=== PATIENT | female | born 1965 | race Caucasian/White ===

== ENCOUNTER 2017-11-07 14:50 | Outpatient (CLI) | payer BC | END 2017-11-07 14:51 | disposition home or self-care (01) | LOC: BICMAMMO 14:50 | PROVIDERS: ATTEND Nurse Practitioner Family | DX: Z12.31 Encounter for screening mammogram for malignant neoplasm of breast (principal) | CPT/HCPCS: 77063; 77067 ==

== ENCOUNTER 2018-06-28 20:22 | Emergency (ER) | payer BC ==
[2018-06-28] MEDS ORDERED: Ondansetron ODT 4 MG TAB ONE (20:38)
[2018-06-28 21:01] LABS: #Basophils 0.2 thou/uL (0.0-0.2); #Eosinphils 0.3 thou/uL (0.0-0.7); #Lymphocytes 4.6 thou/uL (1.20-3.40); #Monocytes 0.8 thou/uL (0.11-0.59); #Neutrophils 7.7 thou/uL (1.40-6.50); %Basophils 1.1 % (0.0-1.0); %Lymphocytes 34.1 % (21.0-51.0); %Monocytes 5.9 % (0.0-10.0); %Neutrophils 56.9 % (42.0-75.0); Hemoglobin 14.6 g/dL (12.0-16.0); Mean Corpuscular HGB CONC 34.8 g/dL (32.0-36.0); Mean Corpuscular Hemoglobin 29.7 pg (27.0-31.0); Mean Corpuscular Volume 85.2 fL (78.0-98.0); Platelet Count 295 thou/uL (130-400); RBC Distribution Width 12.5 % (11.5-14.5); Red Blood Cell (RBC) Count 4.91 mill/uL (4.20-5.40); White Blood Cell (WBC) Count 13.5 thou/uL (4.8-10.8)
[2018-06-28 21:35] LABS: ALT (SGPT) 11 U/L (8-55); AST (SGOT) 13 U/L (5-34); Albumin 4.3 g/dL (3.5-5.0); Alkaline Phosphatase 84 U/L (40-150); Anion Gap 14 mmol/L (10-20); BUN (Urea Nitrogen) 14 mg/dL (9.8-20.1); Bilirubin, Total 0.3 mg/dL (0.2-1.2); Calc. Creatinine Clearance 0 mL/min (70-130); Carbon Dioxide 29 mmol/L (22-29); Chloride 99 mmol/L (98-107); Estimated GFR-MDRD 79; Globulin 4.1 g/dL (2.4-3.5); Glucose 101 mg/dL (70-105); Lipase 19 U/L (8-78); Potassium 3.4 mmol/L (3.5-5.1); Protein, Total 8.4 g/dL (6.0-8.3); Sodium 139 mmol/L (136-145)
== END 2018-06-28 22:34 | disposition left against medical advice (07) ==
LOC: ERS 20:22
DX: Z53.21 Procedure and treatment not carried out due to patient leaving prior to being seen by health care provider (principal)
CPT/HCPCS: 36415; 80053; 83690; 85025; Q0162

== ENCOUNTER 2018-08-16 01:26 | Outpatient (CLI) | payer BC ==
[2018-08-16 12:30] LABS: Hemoglobin 13.1 g/dL (12.0-16.0); Mean Corpuscular HGB CONC 33.4 g/dL (32.0-36.0); Mean Corpuscular Hemoglobin 28.6 pg (27.0-31.0); Mean Corpuscular Volume 85.7 fL (78.0-98.0); Mean Platelet Volume 7.5 fL (7.4-10.4); Platelet Count 267 thou/uL (130-400); RBC Distribution Width 12.8 % (11.5-14.5); Red Blood Cell (RBC) Count 4.59 mill/uL (4.20-5.40); White Blood Cell (WBC) Count 8.3 thou/uL (4.8-10.8)
[2018-08-16 12:40] LABS: BHCG - Serum Negative (NEGATIVE); Pregs Control Background? CLEAR/WHITE (CLR/WHITE); Pregs Control Bar Appear? YES (CONTROL BAR)
== END 2018-08-16 01:27 | disposition home or self-care (01) ==
LOC: LABBT 01:26
PROVIDERS: ATTEND Obstetrics & Gynecology
DX: Z01.812 Encounter for preprocedural laboratory examination (principal); N92.0 Excessive and frequent menstruation with regular cycle; D25.1 Intramural leiomyoma of uterus
CPT/HCPCS: 84703; 85027; 86850; 86900; 86901

== ENCOUNTER 2018-08-16 11:15 | Inpatient (IN) | payer BC ==
[2018-08-16 11:17] VITALS: BMI 37.2
[2018-08-20] MEDS ORDERED: Gabapentin 300 MG CAP ONE (06:16)
[2018-08-20] MEDS ORDERED: Famotidine/PF 20 mg/2ml Vial ONE (06:17)
[2018-08-20] MEDS ORDERED: CeleCOXIB 100 MG CAP ONE (06:17)
[2018-08-20] MEDS ORDERED: Fentanyl 100 MCG/2 ML VIAL ONE (06:42)
[2018-08-20] MEDS ORDERED: Bupivacaine HCl 0.5%/Epinephrine 1:200,000/PF 30 ml Vial ONE (06:43)
--- NOTE | 2018-08-20 07:06 | HP ---
She is scheduled for surgery on 08/20/2018. HISTORY OF PRESENT ILLNESS: Ms. Ashley is a 53-year-old female G3, P3, prior tubal ligation, who has been having increasingly worsening menstrual cramping. She is also having pelvic pressure and discomfort sensation, which is basically worsened over the past year or 2. The pain became severe enough recently, where she presented to the emergency room. A CAT scan and pelvic ultrasound on June 29 revealed a 15.4 x 7 x 10 cm uterus and a 3 cm left ovarian cyst, simple in character. She was given [place] for pain and has been using that frequently. Her last Pap smear was reported normal in 2014. She has never been told in the past that she has had uterine fibroids, but there were multiple uterine fibroids seen on the recent CT scan and pelvic ultrasound. PAST MEDICAL AND SURGICAL HISTORY: Significant for laparoscopic cholecystectomy and tubal ligation. Chronic hypertension. FAMILY HISTORY: Noted for diabetes in her mother and grandmother and maternal grandfather with colon cancer. 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 Thrasher, who initially evaluated the patient and he was unable to pass it through the cervical stenosis. Recent Pap smear obtained in June 2018 was normal along with negative HPV screening. ALLERGIES: SHE HAS NO KNOWN DRUG ALLERGIES. MEDICATIONS: Atenolol 50 mg tablet daily. SOCIAL HISTORY: Nonsmoker. No excessive alcohol use. PHYSICAL EXAMINATION: VITAL SIGNS: The patient's height is 4 feet 10 inches, weight 169 pounds with a BMI of 35.3. Blood pressure 120/72, pulse 81 and regular, and respiratory rate 18. HEENT: Within normal limits. CHEST: Clear to auscultation. HEART: Regular rate and rhythm. S1 and S2 heart sounds. No murmurs, rubs, or gallops. ABDOMEN: Soft, nontender, and nondistended. uterus above over the pelvic brim. PELVIC: On pelvic exam, vulva and vagina had no lesions. Cervix has no lesions. Uterus was approximately 16-week size, irregular, and consistent with uterine fibroids. Adnexa were nontender with no masses. ASSESSMENT: This is a 53-year-old female G3, P3 with tubal ligation, now with symptomatic uterine fibroids including dysmenorrhea and pelvic pain. CAT scan and pelvic ultrasound, agree with the findings. PLAN: Plan is to proceed with a robotic total laparoscopic hysterectomy and bilateral salpingo-oophorectomy with removal of the uterus in contained manner with an ExCITE procedure. The patient is aware if we were unable to accomplish this laparoscopically, then we would proceed with a VIDAL-BSO. Risks and benefits have been discussed, this is set for 08/20/2018. Job ID: [id number]
[2018-08-20] MEDS ORDERED: Simethicone Chewable 80 MG TAB PO PRN (10:19)
[2018-08-20] MEDS ORDERED: traMADol HCl 50 MG TAB PO PRN ×2 (10:19)
[2018-08-20] MEDS ORDERED: Morphine 4 MG/ML VIAL SLOW IVP PRN (10:19)
[2018-08-20] MEDS ORDERED: Acetaminophen 1,000 MG in Premix Bag 1 BAG IVPB PRN (10:19)
[2018-08-20] MEDS ORDERED: diphenhydrAMINE 25 MG CAP PO PRN (10:19)
[2018-08-20] MEDS ORDERED: Bisacodyl 10 MG SUPP PR PRN (10:19)
[2018-08-20] MEDS ORDERED: Zolpidem Tartrate 5 MG TAB PO PRN (10:19)
[2018-08-20] MEDS ORDERED: Ondansetron PF 4 MG/2 ML Vial IVP PRN (10:19)
[2018-08-20] MEDS ORDERED: Promethazine HCl 25 MG/ML VIAL IM PRN (10:19)
[2018-08-20] MEDS ORDERED: Estradiol 0.05mg/24 Hour Patch (Weekly) TD SCH (10:30)
[2018-08-20] MEDS ORDERED: Ketorolac Tromethamine 30 MG/ML VIAL IVP SCH (12:00)
--- NOTE | 2018-08-20 12:22 | OP ---
DATE OF PROCEDURE: 08/20/2018 PREOPERATIVE DIAGNOSES: 1. A 53-year-old female G3, P3, prior tubal ligation with symptomatic 16 week uterine fibroids. 2. Menorrhagia. 3. Pelvic pain. POSTOPERATIVE DIAGNOSES: 1. A 53-year-old female G3, P3, prior tubal ligation with symptomatic 16 week uterine fibroids. 2. Menorrhagia. 3. Pelvic pain. PROCEDURES PERFORMED: Robotic total laparoscopic hysterectomy, bilateral salpingo oophorectomy with the extracorporeal C-incision tissue extraction procedure for removal of the uterine specimen. RECORDER HELPER GRAVITY PROSPECTING SURGEONS: 1. Nicole Ellis DO. 2. Angella Kay PA-C. ANESTHESIA: General endotracheal. ESTIMATED BLOOD LOSS: 50 mL. COMPLICATIONS: None. COUNTS: Correct x2. PATHOLOGY: Bilateral fallopian tubes, ovaries, uterus, and cervix. FINDINGS: 1. Normal bilateral fallopian tubes and ovaries with some filmy adhesions noted bilaterally. 2. Bulky 16-week size uterus with intramural subserosal fibroids noted. 3. Clear urine present in Woods catheter postprocedure and bilateral ureteral peristalsis visualized postprocedure. DISPOSITION: Recovery room, stable. DESCRIPTION OF OPERATIVE PROCEDURE: The patient previously received informed consent in regard to surgery. She was taken back to the operating room, where she received general endotracheal anesthetic agent without complications. She was placed in the dorsal lithotomy position with the use of Luis Antonio stirrups and prepped and draped in usual sterile fashion. At this time, a Woods catheter was placed and the speculum was placed in the vagina. The uterus sounded to 9 cm and size 8 cm CLEMENTINA uterine manipulator 4.0 cm cup was placed in usual fashion. Tenaculum and speculum were removed. Attention was then turned to the abdomen, where perspective trocar sites were infiltrated 0.5% Marcaine with epinephrine. A 12 mm supraumbilical incision was made. Veress needle was then entered into the peritoneal cavity, the patient's pressure was noted to be less than 5 mm. Abdomen was insufflated with the patient's pressure of 15 approximately 5 L of carbon dioxide gas. The Veress needle was then removed. A size 12 mm trocar was then placed through the supraumbilical incision and then the laparoscope was introduced through the trocar sleeve confirming proper entry. The patient was placed in Trendelenburg position. At this time, bilateral lower quadrant 8 mm robotic trocars were placed under laparoscopic guidance along with the right upper quadrant 11 mm clothing sales assistant port. The decision to proceed with robotic hysterectomy was made and then a GelPOINT trocar device was placed in the umbilical incision, which allowed for us to remove the uterus further long in the case. The fascial incision was extended to 2.5 cm in the supraumbilical area on the GelPOINT ring and Marcell retractor was placed. The GelPOINT was then attached along with the trocars. Trocar placed through it and the robotic laparoscope was introduced and through the trocar sleeve. The robot was then docked in usual fashion. Prior to this, though the Aces large bag had been placed and then fold in accordion position and tied with sutures and this had been placed in the right upper quadrant of the patient's abdomen through the fascial defect at the umbilicus. Then, the GelPOINT was attached. The robot had been docked and I proceeded to carry out the procedure from the operative console while my assistants remained at the bedside. The uterus was elevated from the pelvis. The left IP ligament was identified. The course of the ureters noted to be below this site. The IP ligament was coagulated and transected with bipolar fenestrated cautery and monopolar scissors. Serial coagulation of the broad ligament hugging close to the uterine specimen was carried out to the left round ligament was reached. It was transected after coagulation and the anterior leaf of the broad ligament was entered by dissecting the vesicouterine peritoneum in a layering fashion. The posterior leaf of the broad ligament continued to be dissected in avascular plane on the lateral aspect of the left side of the uterus, getting the ureter and the vessels away to the pelvic sidewall. This was carried down, passed the internal cervical os region. The uterine vessels were then coagulated in the internal cervical os with the bipolar fenestrated cautery. Then, the right infundibulopelvic pelvic ligament was identified. The course of the ureter was noted to be below, where the coagulation point was going to be performed. The IP ligament was coagulated with bipolar fenestrated cautery and transected with monopolar scissors. Again, coagulation of the broad ligament hugging close to uterine specimen was carried out. Coagulation transection to the right round ligament was reached. Again, the anterior leaf of the broad ligament was entered. The vesicouterine peritoneum layer was incised both sharply and bluntly dissecting the bladder off the cervix, passed the cervical vaginal cuff, which was delineated by the manipulator. Again, the vessels of the uterus were skeletonized and coagulated in the internal cervical os region. There was noted to be some bleeding on the serosal edge of the bladder during the dissection off the cervix and the monopolar scissors was exchanged at this time for a Reji needle front end driver. My clothing sales assistant brought in a 2-0 Vicryl suture to the left upper quadrant clothing sales assistant port and the serosa was closed over the bladder in a running continuous horizontal fashion with approximately 4 stitches being thrown with good hemostasis noted. The bladder was distended again intraoperatively and it was noted to be prior to this watertight and again watertight. After the uterine vessels had been further coagulated and skeletonized, the anterior colpotomy was then created starting at the 12 to 3 and 12 to 9 o'clock position. We then flipped the large uterine specimen forward and the posterior colpotomy was completed from 6 to 3 and 6 to 9 o'clock position. The uterus and cervix was detached. It was brought up to the left mid quadrant as the remaining uterine manipulator was removed from the vagina and the balloon was then placed back in the vagina for pneumoperitoneum. My clothing sales assistant then brought in a Stratafix suture and then the vaginal cuff was closed in 2 layer closure starting from the right angle towards the left angle back towards the right angle with good hemostasis of the vaginal cuff confirmed. The pelvis again now was then irrigated and suctioned. All pedicle sites were confirmed to be hemostatic and bilateral ureteral peristalsis was visualized bilaterally. Clear urine was draining from the Woods catheter. The Aces bag was then brought into the pelvis with the use of the Reji needle front end driver and bipolar fenestrated device. Once the bag was placed adequately, my clothing sales assistant then cut the stay sutures x2, opening up the Aces bag. We then were able to maneuver the uterine specimen and the bilateral fallopian tubes and ovaries into the bag. We then found the previous tight loop on the side of the bag, which enabled us to bring the drawstring of the bag through the loop, closing the bag with the specimen in-situ. My clothing sales assistant then brought in an atraumatic grasper through the GelPOINT and grasped the bag of the Aces tissue containment bag. After this had been accomplished and the bag have been brought up towards the umbilicus, I broke from the operative console and then rescrubbed as the robot was undocked. We then brought the Aces bag and its contents up through the umbilical defect. The Marcell O retractor had been removed, then placed inside the Aces bag with retraction of the fascia again to protect the tissue bag containment. The ExCITE procedure with the C technique of the morcellation was carried out with a #11 blade with serial removal of the specimen, so the entire specimen was removed from the containment bag. The Marcell O retractor was removed along with the Aces bag was noted to be intact and watertight. The fascia over the umbilicus was then closed with a running continuous 0 Vicryl suture. Good fascial approximation. The closure of the trocar sites and the remainder of the skin incisions were closed with 4-0 Monocryl with Dermabond. The vagina was inspected with this sponge stick and hemostasis of the vaginal cuff vaginally was confirmed. The patient was then awakened from anesthesia and transferred to recovery room in stable condition. Job ID: [id number]
[2018-08-20] MEDS: Sodium Chloride 0.9% 1,000 ML IV SCH ×2 (13:30→18:30)
[2018-08-20] MEDS ORDERED: Rocuronium Bromide 10 MG/ML (10ML VIAL) ONE (15:19)
[2018-08-20] MEDS ORDERED: Dexamethasone 20 MG/5 ML VIAL ONE (15:19)
[2018-08-20] MEDS ORDERED: Lidocaine 1% PF 5 ML VIAL ONE (15:19)
[2018-08-20] MEDS ORDERED: PROPOFOL 200 MG/20 ML VIAL ONE (15:19)
[2018-08-20] MEDS ORDERED: Ketorolac Tromethamine 30 MG/ML VIAL ONE (15:19)
[2018-08-20] MEDS ORDERED: Ondansetron PF 4 MG/2 ML Vial ONE (15:19)
[2018-08-20] MEDS ORDERED: Glycopyrrolate 0.2 MG/ML 5 ML SYRINGE ONE (15:19)
[2018-08-20] MEDS ORDERED: PHENYLEPHRINE-NS 100 MCG/ML 10 ML SYRINGE ONE (15:19)
[2018-08-20] MEDS: Ketorolac Tromethamine 30 MG/ML VIAL IVP SCH ×2 (15:29→22:30)
[2018-08-21] MEDS: Sodium Chloride 0.9% 1,000 ML IV SCH (02:30)
[2018-08-21] MEDS: Ketorolac Tromethamine 30 MG/ML VIAL IVP SCH ×2 (04:52→09:35)
[2018-08-21 07:33] LABS: Hemoglobin 11.8 g/dL (12.0-16.0); Mean Corpuscular HGB CONC 33.4 g/dL (32.0-36.0); Mean Platelet Volume 7.5 fL (7.4-10.4); Platelet Count 205 thou/uL (130-400); RBC Distribution Width 13.2 % (11.5-14.5); Red Blood Cell (RBC) Count 4.05 mill/uL (4.20-5.40); White Blood Cell (WBC) Count 14.4 thou/uL (4.8-10.8)
[2018-08-21 08:04] VITALS: TEMP 98.2
--- NOTE | 2018-08-21 09:55 | PDOC.EVN ---
Event Note - Event Note Event Note: Tolerating regular diet. Passing gas. Good pain control. Ambulating and voiding. O:AFVSS. Hct 35.2% abdomen soft/ non distended. trochar sites c/d/i. A/P: post op kaila 1 from robotic tlh/bso.. doing well.. d/c home. follow up 2 and 6 weeks.
--- NOTE | 2018-08-21 11:26 | DIS ---
DATE OF ADMISSION: 08/20/2018 DATE OF DISCHARGE: 08/21/2018 DATE OF SURGERY: 08/20. DIAGNOSES: 1. Asymptomatic 16-week uterine fibroid. 2. Pelvic pain. 3. Menorrhagia. PROCEDURES PERFORMED: Robotic total laparoscopic hysterectomy and bilateral salpingo-oophorectomy with ExCITE procedure for specimen removal. SUMMARY HOSPITAL COURSE: Ms. Ashley is a 53-year-old female, who has been having progressive pelvic pain issues and heavy flow and was noted to have a 16-week uterine fibroid. She underwent a robotic total laparoscopic hysterectomy and bilateral salpingo-oophorectomy with ExCITE procedure on 08/20/2018. Postoperatively, the patient has done well. Her vital signs remained stable. She was ambulating and voiding without difficulty and tolerating a regular diet on postop day #1. DISCHARGE MEDICATIONS: [place] 325-5 mg one p.o. q.6 hours p.r.n. pain, [id number]-[id number] ibuprofen as directed and estradiol 0.05 patch apply twice a week for hormone replacement therapy. Pathology is pending at time of this dictation, and she has a followup scheduled two in 6 weeks. Job ID: [id number]
[2018-08-21 11:42] VITALS: BP 128/68
[2018-08-25] MEDS ORDERED: Ibuprofen 800 MG TAB PO SCH (14:00)
== END 2018-08-21 11:57 | disposition home or self-care (01) | DRG 743 ==
LOC: SURG A 08-20 05:33 → SJJU 08-20 11:22 → SURG A 08-20 11:24 → 3SE 08-20 12:28
PROVIDERS: ADMIT Obstetrics & Gynecology; ATTEND Obstetrics & Gynecology
PROC: 0UT94ZZ Resection of Uterus, Percutaneous Endoscopic Approach (ICD-10-PCS; principal; 2018-08-20)
PROC: 0UT24ZZ Resection of Bilateral Ovaries, Percutaneous Endoscopic Approach (ICD-10-PCS; 2018-08-20)
PROC: 0UT74ZZ Resection of Bilateral Fallopian Tubes, Percutaneous Endoscopic Approach (ICD-10-PCS; 2018-08-20)
PROC: 8E0W4CZ Robotic Assisted Procedure of Trunk Region, Percutaneous Endoscopic Approach (ICD-10-PCS; 2018-08-20)
DX: D25.1 Intramural leiomyoma of uterus (principal); N92.0 Excessive and frequent menstruation with regular cycle; R10.2 Pelvic and perineal pain; I10 Essential (primary) hypertension; Z90.49 Acquired absence of other specified parts of digestive tract; Z98.51 Tubal ligation status
CPT/HCPCS: 36415; 85027; 88307; J0131; J0670; J1100; J1885; J2001; J2270; J2405; J2704; J3010; S0028

== ENCOUNTER 2018-12-24 13:09 | Outpatient (CLI) | payer BC ==
--- NOTE | 2018-12-24 13:53 | BD ---
DEXA BONE DENSITY STUDY: Date: 12/24/18 HISTORY: Vitamin D deficiency. FINDINGS: Lumbar Spine: BMD (g/cm2) L1 1.070 T-Score: +0.7 L2 1.167 T-Score: +1.3 L3 1.195 T-Score: +1.0 L4 1.204 T-Score: +1.3 Total 1.161 T-Score: +1.0 Left Femoral Neck: 0.946 T-Score: +0.9 Total Femur: 1.189 T-Score: +2.0 IMPRESSION: Normal bone mineral density of the lumbar spine and left femoral neck. POS: [facility]
--- NOTE | 2018-12-24 14:39 | MMO ---
Bilateral MAMMO Bilat Screen [facility]+BOUBACAR. CLINICAL HISTORY: Patient is 53 years old and is seen for screening. The patient has no family history of breast cancer. The patient has no personal history of cancer. The patient has a history of right Ultrasound Guided Core Biopsy more than 10 years ago - benign. VIEWS: The views performed were: bilateral craniocaudal with tomosynthesis and bilateral mediolateral oblique with tomosynthesis. FILMS COMPARED: The present examination has been compared to a prior imaging study performed at [facility] on 11/07/2017. MAMMOGRAM FINDINGS: There are scattered fibroglandular densities. Right biopsy clip. There are no suspicious masses, suspicious calcifications, or new areas of architectural distortion. IMPRESSION: THERE IS NO MAMMOGRAPHIC EVIDENCE OF MALIGNANCY. A ROUTINE FOLLOW-UP MAMMOGRAM IN 1 YEAR IS RECOMMENDED. THE RESULTS OF THIS EXAM WERE SENT TO THE PATIENT. ACR BI-RADS Category 2 - Benign finding MAMMOGRAPHY NOTE: 1. A negative mammogram report should not delay a biopsy if a dominant of clinically suspicious mass is present. 2. Approximately 10% to 15% of breast cancers are not detected by mammography. 3. Adenosis and dense breasts may obscure an underlying neoplasm.
== END 2018-12-24 13:10 | disposition home or self-care (01) ==
LOC: BICMAMMO 13:09
PROVIDERS: ATTEND Nurse Practitioner Family
DX: Z12.31 Encounter for screening mammogram for malignant neoplasm of breast (principal); E55.9 Vitamin D deficiency, unspecified; Z91.89 Other specified personal risk factors, not elsewhere classified
CPT/HCPCS: 77063; 77067; 77080

== ENCOUNTER 2019-04-20 04:28 | Emergency (ER) | payer BC | END 2019-04-20 04:50 | disposition home or self-care (01) | LOC: ERS 04:28 | DX: S50.811A Abrasion of right forearm, initial encounter (principal); I10 Essential (primary) hypertension; Z79.899 Other long term (current) drug therapy; W26.8XXA Contact with other sharp object(s), not elsewhere classified, initial encounter | CPT/HCPCS: 99282 ==

== ENCOUNTER 2019-06-06 11:16 | Outpatient (CLI) | payer BC ==
--- NOTE | 2019-06-06 11:58 | RAD ---
LEFT FOOT THREE VIEWS: HISTORY: Left foot pain on the lateral aspect. FINDINGS: No acute fracture, dislocation or bony destruction is seen. A small calcaneal spur is present . POS: [facility]
== END 2019-06-06 11:17 | disposition home or self-care (01) ==
LOC: BICRAD 11:16
PROVIDERS: ATTEND Nurse Practitioner Family
DX: M79.672 Pain in left foot (principal); M77.32 Calcaneal spur, left foot

== ENCOUNTER 2019-12-02 | Outpatient (CLI) | payer BC | END 2019-12-02 08:59 | disposition home or self-care (01) | DX: M47.26 Other spondylosis with radiculopathy, lumbar region (principal) ==

== ENCOUNTER 2020-01-30 12:24 | Outpatient (CLI) | payer BC ==
--- NOTE | 2020-01-30 13:14 | MRI ---
MRI Lower Ext Jt Lt WO Con History: Internal derangement of left knee M 23.92. Medial meniscus tear Comparison: Radiograph January 20, 2020 Findings: Medial meniscus: Full-thickness radial tear posterior horn medial meniscus near the root with a 3 mm gap. Tear is distant from the footprint 7 mm. 2 mm medial gutter extrusion medial meniscal body. Lateral meniscus: Intact Mechanism: Quadriceps tendon, patella and patellar tendon are intact. Cartilage: Patellofemoral compartment: Mild to moderate less than 50% chondral fraying of the central trochlear groove. Medial compartment: Less than 25% chondral fraying. No full-thickness defect. Lateral compartment: Intact Soft tissues: Slight increased volume joint fluid. Trace popliteal cyst. Muscles: Muscle signal and bulk is normal. ACL, PCL, MCL and LCL are all intact along with the popliteus tendon. Impression: 1. Full-thickness radial tear posterior horn medial meniscus near the root with a 3 mm gap. Tear is d istant from the footprint 7 mm. 2 mm meniscal body gutter extrusion. 2. 1-2 mm medial gutter extrusion medial meniscal body with only grade 1-2 chondromalacia. 3. Trace popliteal cyst with craniad dehiscence.
== END 2020-01-30 12:25 | disposition home or self-care (01) ==
LOC: BICMRI 12:24
PROVIDERS: ATTEND Orthopaedic Surgery
DX: M23.92 Unspecified internal derangement of left knee (principal); S83.242A Other tear of medial meniscus, current injury, left knee, initial encounter; M94.262 Chondromalacia, left knee

== ENCOUNTER 2020-10-22 15:45 | Outpatient (CLI) | payer BC ==
[2020-10-22 16:59] LABS: Bilirubin Neg (Negative); Blood, Urine 150 (Negative); Clarity Slightly Cloudy (Clear); Glucose, Urine (Dipstick) Normal (Negative); Ketone, Urine 5 mg/dL (Negative); Leukocyte 100 (Negative); Nitrite Negative (Negative); Protein, Urine (Dipstick) 30 mg/dl (Neg-Trace); Specific Gravity, Urine 1.025 (1.002-1.036)
[2020-10-22 17:08] LABS: Transitional Epithelial 0-3 HPF (None Seen)
[2020-10-22 17:09] LABS: Bacteria/HPF Rare-Few HPF (None Seen); Calcium Oxalate Crystals 2+ HPF (None Seen); Mucous/LPF Rare LPF (<2+)
[2020-10-22 17:12] LABS: Anion Gap 15 mmol/L (10-20); BUN (Urea Nitrogen) 17 mg/dL (9.8-20.1); Calc. Creatinine Clearance 0 mL/min (70-130); Carbon Dioxide 25 mmol/L (22-29); Chloride 105 mmol/L (98-107); Potassium 3.9 mmol/L (3.5-5.1); Sodium 141 mmol/L (136-145)
[2020-10-22 17:13] LABS: Calcium 9.3 mg/dL (7.8-10.44); Glucose 93 mg/dL (70-105)
[2020-10-22 17:14] LABS: #Basophils 0.1 10x3/uL (0.0-0.2); #Eosinphils 0.7 10x3/uL (0.0-0.5); #Monocytes 0.8 10x3/uL (0.0-1.1); #Neutrophils 6.2 10x3/uL (1.5-8.4); %Basophils 0.4 % (0.0-2.0); %Eosinophils 5.8 % (0.0-6.0); %Lymphocytes 31.8 % (18.0-47.0); %Monocytes 6.8 % (0.0-10.0); %Neutrophils 54.8 % (40.0-75.0); Hemoglobin 14.1 g/dL (12.0-15.5); Mean Corpuscular HGB CONC 33.5 g/dL (32.0-36.0); Mean Corpuscular Hemoglobin 29.6 pg (27.0-33.0); Mean Corpuscular Volume 88.4 fl (81.6-98.3); Platelet Count 279 10x3/uL (150-450); RBC Distribution Width 11.9 % (11.5-14.5); Red Blood Cell (RBC) Count 4.76 10x6/uL (3.90-5.03); White Blood Cell (WBC) Count 11.3 10x3/uL (3.5-10.5)
[2020-10-22 17:31] LABS: INR-International Normal Ratio 0.9; Prothrombin Time 10.3 sec (9.5-12.1)
[2020-10-23 02:15] LABS: SARS-CoV-2 PCR by NAA Not Detected (NotDetected)
== END 2020-10-22 15:46 | disposition home or self-care (01) ==
LOC: LABBT 15:45
PROVIDERS: ATTEND Orthopaedic Surgery
DX: Z01.818 Encounter for other preprocedural examination (principal); M17.11 Unilateral primary osteoarthritis, right knee; Z20.822 Contact with and (suspected) exposure to COVID-19
CPT/HCPCS: 80048; 81001; 85025; 85610; 86850; 86900; 86901; 87081; 87635; 93005; 93010; U0003; U0005

== ENCOUNTER 2020-10-22 16:00 | Inpatient (IN) | payer BC ==
[2020-10-27] MEDS ORDERED: Sodium Chloride 0.9% 100 ML ONE (08:31)
[2020-10-27] MEDS ORDERED: Tranexamic Acid 1,000 MG/10 ML VIAL ONE (08:31)
[2020-10-27] MEDS ORDERED: Vancomycin 1 GM/200 ML BAG ONE (08:31)
[2020-10-27] MEDS ORDERED: Vancomycin HCl 1.5 GM in Sodium Chloride 0.9% 250 ML 300 ML IVPB SCH (08:45)
[2020-10-27] MEDS ORDERED: Midazolam HCl 2 mg/2 ml Vial ONE ×2 (09:06→09:59)
[2020-10-27] MEDS ORDERED: Fentanyl 100 MCG/2 ML VIAL ONE ×4 (09:06→13:03)
[2020-10-27] MEDS ORDERED: Fentanyl 100 MCG/2 ML VIAL IV PRN (09:26)
[2020-10-27] MEDS ORDERED: Promethazine HCl 25 MG/ML VIAL IM PRN ×2 (09:30→16:47)
[2020-10-27] MEDS ORDERED: Zolpidem Tartrate 5 MG TAB PO PRN ×2 (09:30→16:48)
[2020-10-27] MEDS ORDERED: HYDROcodone/Acetaminophen 10/325 mg Tablet PO PRN ×3 (09:30→16:49)
[2020-10-27] MEDS ORDERED: Ropivacaine HCl/PF 250 ML in Premix Bag 1 BAG NERVE BLCK SCH (09:30)
[2020-10-27] MEDS ORDERED: traMADol HCl 50 MG TAB PO PRN ×3 (09:30→16:49)
[2020-10-27] MEDS ORDERED: Ondansetron PF 4 MG/2 ML Vial IVP PRN ×2 (09:30→16:46)
[2020-10-27] MEDS ORDERED: Ondansetron PF 4 MG/2 ML Vial ONE (10:30)
[2020-10-27] MEDS ORDERED: Lidocaine 1% PF 5 ML VIAL ONE (10:30)
[2020-10-27] MEDS ORDERED: Dexamethasone 20 MG/5 ML VIAL ONE (10:30)
[2020-10-27] MEDS ORDERED: Ropivacaine 2% HCl/PF (20 MG/10 ML VIAL) ONE (10:30)
[2020-10-27] MEDS ORDERED: Bupivacaine HCl 0.5%/Epinephrine 1:200,000/PF 30 ml Vial ONE (10:30)
[2020-10-27] MEDS ORDERED: PROPOFOL 200 MG/20 ML VIAL ONE (10:30)
[2020-10-27] MEDS ORDERED: Ketorolac Tromethamine 30 MG/ML VIAL ONE (12:09)
[2020-10-27] MEDS ORDERED: Ropivacaine 0.2% 550 ML 550 ML NERVE BLCK SCH (14:45)
[2020-10-27] MEDS ORDERED: Acetaminophen 325 MG TAB PO PRN (16:46)
[2020-10-27] MEDS ORDERED: diphenhydrAMINE 25 MG CAP PO PRN (16:47)
[2020-10-27] MEDS ORDERED: Fentanyl 100 MCG/2 ML VIAL SLOW IVP PRN ×2 (16:50)
[2020-10-27] MEDS: Ketorolac Tromethamine 30 MG/ML VIAL IVP SCH ×3 (17:53→23:48)
[2020-10-27] MEDS: CEFAZOLIN 2 GM in Premix Bag 1 BAG IVPB SCH (18:06)
[2020-10-27 18:50] VITALS: BMI 40.1
[2020-10-27] MEDS: Aspirin 325 MG TAB PO SCH (20:06)
[2020-10-27] MEDS: Ferrous Gluconate 324 MG TAB PO SCH (20:06)
[2020-10-28] MEDS: CEFAZOLIN 2 GM in Premix Bag 1 BAG IVPB SCH (02:00)
[2020-10-28] MEDS: Ketorolac Tromethamine 30 MG/ML VIAL IVP SCH ×4 (05:21→23:20)
[2020-10-28 05:58] LABS: Hemoglobin 12.2 g/dL (12.0-16.0); Mean Corpuscular HGB CONC 34.1 g/dL (32.0-36.0); Mean Corpuscular Hemoglobin 30.7 pg (27.0-31.0); Mean Platelet Volume 7.6 fL (7.4-10.4); Platelet Count 250 thou/uL (130-400); RBC Distribution Width 11.4 % (11.5-14.5); Red Blood Cell (RBC) Count 3.98 mill/uL (4.20-5.40); White Blood Cell (WBC) Count 17.8 thou/uL (4.8-10.8)
[2020-10-28] MEDS: Aspirin 325 MG TAB PO SCH ×2 (09:00→20:06)
[2020-10-28] MEDS: Senokot S 8.6-50 MG TAB PO SCH ×2 (09:00→20:07)
[2020-10-28] MEDS: Ferrous Gluconate 324 MG TAB PO SCH ×2 (09:00→20:06)
[2020-10-28] MEDS: Multivitamin W/ Minerals 1 TAB PO SCH (09:00)
[2020-10-28] MEDS: HYDROcodone/Acetaminophen 10/325 mg Tablet PO PRN (09:07)
[2020-10-29 04:21] VITALS: TEMP 98.2
[2020-10-29] MEDS: Ketorolac Tromethamine 30 MG/ML VIAL IVP SCH (06:02)
[2020-10-29 08:21] VITALS: BP 142/84
[2020-10-29] MEDS: Senokot S 8.6-50 MG TAB PO SCH (08:59)
[2020-10-29] MEDS: Ferrous Gluconate 324 MG TAB PO SCH (08:59)
[2020-10-29] MEDS: Multivitamin W/ Minerals 1 TAB PO SCH (08:59)
[2020-10-29] MEDS ORDERED: Aspirin 81 mg Enteric Coated Tablet PO SCH (09:00)
[2020-10-29] MEDS: HYDROcodone/Acetaminophen 10/325 mg Tablet PO PRN ×2 (09:00→13:28)
== END 2020-10-29 13:50 | disposition home or self-care (01) | DRG 470 ==
LOC: SURG A 10-27 08:06 → EDSTATUS 10-27 16:00 → SURG A 10-27 16:07
PROVIDERS: ADMIT Orthopaedic Surgery; ATTEND Orthopaedic Surgery
PROC: 0SRC0J9 Replacement of Right Knee Joint with Synthetic Substitute, Cemented, Open Approach (ICD-10-PCS; principal; 2020-10-27)
PROC: 8E0YXBZ Computer Assisted Procedure of Lower Extremity (ICD-10-PCS; 2020-10-27)
DX: M17.11 Unilateral primary osteoarthritis, right knee (principal); Z68.41 Body mass index [BMI] 40.0-44.9, adult; Z20.822 Contact with and (suspected) exposure to COVID-19; M21.161 Varus deformity, not elsewhere classified, right knee; M25.761 Osteophyte, right knee; I10 Essential (primary) hypertension; E11.9 Type 2 diabetes mellitus without complications; E66.9 Obesity, unspecified; Z90.710 Acquired absence of both cervix and uterus; Z79.899 Other long term (current) drug therapy
CPT/HCPCS: 36415; 85027; C1713; C1776; J0690; J1100; J1885; J2250; J2405; J2704; J2795; J3010; J3370; J3490